=== PATIENT | female | born 1965 | race Caucasian/White ===

== ENCOUNTER 2020-08-16 12:16 | Outpatient (CLI) | payer MEDICARE ==
[~2020-08-16] VITALS: Ht 147.3 cm; Wt 128.2 kg
[2020-08-16 14:29] VITALS: BP 129/52; Ht 147.3 cm; Wt 128.2 kg
== END 2020-08-16 19:00 | disposition home or self-care (01) ==
LOC: D.OPS 12:16
PROVIDERS: ATTEND Emergency Medicine
DX: D50.9 Iron deficiency anemia, unspecified (principal)

== ENCOUNTER 2020-09-15 08:32 | Outpatient (CLI) | payer MEDICARE ==
[~2020-09-15] VITALS: Ht 147.3 cm; Wt 119.1 kg
[2020-09-15 09:03] LABS: BASOPHILS 0.3 % (0-2); EOSINOPHILS 1.6 % (0-7)
[2020-09-15 09:04] LABS: HEMATOCRIT 22.2 % (36.0-48.0); LYMPHOCYTES 19.9 % (15-50); MCH 26.1 pg (26.0-34.0); MCHC 30.8 g/dL (31.0-37.0); MCV 84.6 fL (80.0-100.0); MEAN PLATELET VOLUME 7.8 fL (7.4-10.4); MONOCYTES 6.5 % (2-11); NEUTROPHILS 71.7 % (40-80); PLATELET COUNT 176 10x3/uL (130-400); RBC 2.62 10x6/uL (4.00-5.40); RDW 23.7 % (11.5-14.5); WBC 6.5 10x3/uL (4.8-10.8)
[2020-09-15 09:18] LABS: % SATURATION 4 % (15-55); IRON 18 ug/dl (35-150); TOTAL IRON BIND CAPACITY 446 ug/dl (260-445); UNSAT IRON BIND CAPACITY 428 ug/dl (150-375)
[2020-09-15 09:50] LABS: HEMOGLOBIN 6.8 g/dL (12-16)
[2020-09-15 13:29] VITALS: Ht 147.3 cm; Wt 119.1 kg
--- NOTE | 2020-09-15 13:41 | NUR ---
1340 REPORT FROM GERONIMO DANIELLE RN. WARM BLANKET SUPPLIED FOR PT. CALL LIGHT AT SIDE.
--- NOTE | 2020-09-15 13:46 | NUR ---
1345 SITTING ON SIDE OF BED EATING REG DIET. DENIES PROBLEMS WITH TRANSFUSION, DENIES HEART OR KIDNEY PROBLEMS, RATE INCREASED TO 225/CC/HR.
--- NOTE | 2020-09-15 14:12 | NUR ---
1400 ROOM CHECK, PT. ATE 100% DIET. DENIES PROBLEMS WITH TRANSFUSION, IV SITE PATENT. PT. RETURNED SUSPINE TO REST WITH HOB 30 DEGREES.
--- NOTE | 2020-09-15 14:28 | NUR ---
1425 ROOM CHECK, PT. STATES SHE IS DOING OKAY.
--- NOTE | 2020-09-15 14:46 | NUR ---
5195 ROOM CHECK, BLOOD INFUSING WELL, IV SITE PATENT, NEAR COMPLETION OF FIRST UNIT. HOB ADJUSTED FOR COMFORT.
--- NOTE | 2020-09-15 14:57 | NUR ---
1268 FIRST UNIT HAS COMPLETED, LINE BEING FLUSHED WITH NS. DENIES PROBLEMS.
--- NOTE | 2020-09-15 15:21 | NUR ---
1515 2ND UNIT CHECKED AT BEDSIDE BY THIS NURSE AND MANPREET ROPER RN. INIATED AT 75/CC/HR. PT. WANTED TO SIT UP IN A CHAIR, I ASSISSTED HER. 1520 REPORT TO MANPREET ROPER RN, NEEDS CBC POST TRANSFUSION.
[2020-09-15 17:13] LABS: BASOPHILS 0.4 % (0-2); EOSINOPHILS 1.3 % (0-7); LYMPHOCYTES 19.6 % (15-50); MCH 26.4 pg (26.0-34.0); MCHC 31.7 g/dL (31.0-37.0); MCV 83.3 fL (80.0-100.0); MEAN PLATELET VOLUME 8.4 fL (7.4-10.4); MONOCYTES 7.1 % (2-11); NEUTROPHILS 71.6 % (40-80); PLATELET COUNT 164 10x3/uL (130-400); RDW 19.8 % (11.5-14.5); WBC 6.3 10x3/uL (4.8-10.8)
[2020-09-15 17:14] LABS: HEMATOCRIT 27.5 % (36.0-48.0); HEMOGLOBIN 8.7 g/dL (12-16)
--- NOTE | 2020-09-15 17:19 | NUR ---
1655 IV REMOVED AND PRESSURE HELD. INSTRUCTIONS GIVEN. 1659 LAB HERE TO DRAW CBC.
== END 2020-09-15 17:15 | disposition home or self-care (01) ==
LOC: D.US 08:32
PROVIDERS: ATTEND Internal Medicine Gastroenterology
DX: D64.9 Anemia, unspecified (principal); K76.0 Fatty (change of) liver, not elsewhere classified

== ENCOUNTER → 2020-09-30 12:24 | Outpatient (CLI) | payer MEDICARE ==
[2020-09-15 13:29] VITALS: BMI 54.8
[2020-09-30 12:51] LABS: BASOPHILS 0.4 % (0-2); EOSINOPHILS 3.2 % (0-7); HEMATOCRIT 27.1 % (36.0-48.0); HEMOGLOBIN 8.5 g/dL (12-16); LYMPHOCYTES 22.6 % (15-50); MCH 26.1 pg (26.0-34.0); MCHC 31.2 g/dL (31.0-37.0); MCV 83.6 fL (80.0-100.0); MEAN PLATELET VOLUME 8.1 fL (7.4-10.4); MONOCYTES 9.6 % (2-11); NEUTROPHILS 64.2 % (40-80); PLATELET COUNT 152 10x3/uL (130-400); RBC 3.24 10x6/uL (4.00-5.40); RDW 19.2 % (11.5-14.5); WBC 4.8 10x3/uL (4.8-10.8)
== END | disposition home or self-care (01) ==
LOC: D.LAB 12:24
PROVIDERS: ATTEND Internal Medicine Gastroenterology
DX: D64.9 Anemia, unspecified (principal)